=== PATIENT | female | born 1950 | race Caucasian/White ===

== ENCOUNTER 2024-07-17 23:07 | Inpatient (IN) | payer MEDICARE, BC, SELFPAY ==
[2024-07-17] VITALS (7 sets, daily range): BP systolic 91–149; BP diastolic 52–99; O2SAT 89; BMI 36.1
[2024-07-17] MEDS: ZOFRAN 4 MG IV (17:07)
[2024-07-17] MEDS: PROTONIX IV 40 MG IV (17:07)
[2024-07-17] MEDS: NSS 1000 IV (17:09)
--- NOTE | 2024-07-17 17:14 | EDRN ---
the pts p02 was 88% on RA, no c/o SOB, this RN notified Dr. Lomeli and placed the pt on 3L NC, Sp02 came up to 94%
[2024-07-17 17:17] LABS: % Basophils 0.4 % (0-2); % Immature Granulocytes 0.3 % (0-0.5); % Lymphocytes 8.8 % (20.5-51.1); % Monocytes 5.8 % (1.7-9.3); % Neutrophils 84.7 % (42.2-75.2); Absolute Lymphocytes 0.7 10^3/uL (1.2-3.4); Absolute Monocytes 0.4 10^3/uL (0.1-0.6); Absolute Neutrophils 6.5 10^3/uL (1.4-6.5); Hematocrit 41.8 % (37.0-47.0); Hemoglobin 13.9 g/dL (12.0-16.0); Mean Corp Hgb Conc. 33.3 g/dL (33.0-37.0); Mean Corpuscular Hgb 30.7 pg (27.0-31.0); Mean Corpuscular Volume 92.3 fL (81.0-99.0); Mean Platelet Volume 9.9 fL (7.4-10.4); Nucleated Red Blood Cells % 0 %; Platelet Count 196 10^3/uL (130-400); Red Blood Cell Count 4.53 10^6/uL (4.20-5.40); Red Cell Dist. Width 13.4 % (11.5-14.5); White Blood Cell Count 7.6 10^3/uL (4.8-10.8)
--- NOTE | 2024-07-17 17:24 | ED.GENMED ---
History of Present Illness
General
Chief Complaint: Abdominal Symptoms
Time Seen by Provider: 07/17/24 16:17
History of Present Illness
History of Present Illness:
73-year-old female without significant past medical history presenting to the emergency department for vomiting. Patient reports she has been vomiting throughout the night and vomited this morning, dark brown in color. She is concerned that it
could be blood. Denies any blood in her stool or any dark stool. Denies any present abdominal pain, however does note some intermittent cramping. Denies fever. Denies any history of stomach ulcer. She does intermittently take Aleve for knee
pain. Denies additional blood thinners. Denies lightheadedness, dizziness, chest pain, difficulty breathing or additional medical complaints
Phy Exam
Physical Exam
Physical Exam:
General: Well-appearing, no clinical signs of dehydration, nontoxic and in no acute distress
HEENT: protecting airway
Neck: appears supple
CV: Normal heart rate, regular rhythm, no evidence of cyanosis
Resp: No accessory muscle use, no increased work of breathing, lungs clear to auscultation bilaterally
Abd: Soft and non-distended, no tenderness to palpation
Extremities: No deformities, no swelling, no erythema
Neuro: alert, no focal neurologic deficit
: Hemoccult neg brown stool
Rectal: deferred
Psych: Normal affect
Skin: Intact
Course
Orders/Labs/Results
Orders:
Orders
07/17/24 14:47
IV Insert/Care/Rem.- Treatment PRN
07/17/24 14:48
ECG [Electrocardiogram (*1)] Urgent
Reason for Study: Abdominal Pain
EKG- Treatment ONCE
07/17/24 16:50
0.9% Sodium Chloride 1000 ml [Nss] 1,000 ml IV BOLUS
Ondansetron Injectable [Zofran] 4 mg IV NOW STA
Pantoprazole [Protonix IV] 40 mg IV NOW STA
07/17/24 17:10
Complete Blood Count/With Diff Urgent
Comprehensive Metabolic Panel Urgent
Lipase Urgent
Urinalysis Reflex To Culture Urgent
Date Specimen was Collected: 07/17/24
Time Specimen was Collected: 14:47
Urine Microscopic Reflex Cult Urgent
Urine Culture Urgent
KANDI Source: U
Specimen Description:
Date Specimen was Collected: 07/17/24
Time Specimen was Collected: 14:47
07/17/24 18:06
CR Chest - 2 Views Urgent
Comment:
Reason For Exam: sob
07/17/24 19:58
CT Pe/abd/pel W Urgent
Reason For Exam: vomiting, hypoxia
Abnormal Lab Results
07/17/24
17:10
Absolute Lymphs (auto) 0.7 L 10^3/uL
(1.2-3.4)
Neutrophils % 84.7 H %
(42.2-75.2)
Lymphocytes % 8.8 L %
(20.5-51.1)
BUN 20 H mg/dl
(7-17)
Glucose 101 H mg/dl
(70-99)
Urine Ketones 3+ A
(Negative)
Ur Occult Blood Reflex 2+ A
(Negative)
Leukocyte Esterase Rfl 3+ A
(Negative)
Urine RBC 3-6 A /HPF
(0-2)
Urine Bacteria (Reflex) Many A
(Negative)
Urine Albumin (Reflex) 2+ A
(Neg - Trace)
07/17/24 17:10
07/17/24 17:10
Vital Signs
Initial and Last Documented VS:
Initial Vital Signs
Temp Pulse Resp BP Pulse Ox
98.8 F 119 22 149/99 92
07/17/24 14:01 07/17/24 14:01 07/17/24 14:01 07/17/24 14:01 07/17/24 14:01
Last Documented Vital Signs
Temp Pulse Resp BP Pulse Ox
97.6 F 92 16 91/63 89
07/17/24 17:14 07/17/24 18:30 07/17/24 18:30 07/17/24 18:00 07/17/24 19:57
MDM/Problems Addressed
MDM/Problems Addressed:
73-year-old female presenting to the emergency department for vomiting since this morning. Vital signs are normal.
On exam patient is resting comfortably, no acute distress or discomfort. No present hemodynamic instability. Abdomen is presently soft, nontender. Ultimately suspect GERD versus gastritis. Picture of vomitus provided, dark brown in color.
Rectal exam negative for occult blood. Lower suspicion for significant GI hemorrhage. Patient could have possible peptic ulcer disease. Will check laboratory analysis including hemoglobin. Will treat with pantoprazole, Zofran, IV fluids and
reassess.
20:10 -lab work is unremarkable, normal hemoglobin. However, patient was found to be hypoxic to 88% of unclear etiology. X-ray obtained, does show opacity at the left lower lung, patient without cough or difficulty breathing. She does note that
she had COVID 3 weeks ago, so may be from prior viral infection. On ambulatory pulse ox, oxygen did drop to 89%. Heart rate went up. This reason, will obtain CT chest imaging for unclear etiology to patient's hypoxia. Given her initial vomiting
complaint, will also obtain CT abdomen
*Critical Care Note
Total Time (30-74mins, 75-104mins- exclusive of procedures): Not Applicable
ED Attending Note
-
Portions of this chart may have been created with voice recognition software.� Occasional wrong word or��sound alike� substitutions may have occurred due to the inherent limitations of voice recognition software.
Discharge Plan
Departure
Prescriptions:
No Action
dorzolamide-timolol [Cosopt] 22.3-6.8 mg/mL Drops
1 drp OPHTHALMIC (EYE) BID
Lumigan 0.01 % Drops
1 drp OPHTHALMIC (EYE) DAILY
naproxen 500 MG tablet,delayed release (DR/EC)
500 mg PO PRN PRN (Reason: pain)
Referrals:
Yenni Tee MD [Family Provider] -
Interventions
Interventions:
*Risk Screen - Suicide Last Done: 07/17/24 14:01
*General Assessment Last Done: 07/17/24 14:01
*Neglect/Abuse Screening Last Done: 07/17/24 14:01
*ED- Fall Risk Assessment Last Done: 07/17/24 17:14
*ED COVID-19 Vaccine History Last Done: 07/17/24 17:14
PA-Eygmct-[place]vdioe Assessment Last Done: 07/17/24 17:14
Discharge Date and Time
Print Language: [place]
[2024-07-17 17:31] LABS: ALT (SGPT) 22 U/L (0-35); AST (SGOT) 28 U/L (14-36); Albumin 3.6 g/dl (3.5-5.0); Alkaline Phosphatase 65 U/L (38-126); Blood Urea Nitrogen 20 mg/dl (7-17); Calcium 8.4 mg/dl (8.4-10.2); Carbon Dioxide 27 mmol/L (22-30); Chloride 105 mmol/L (98-107); Estimated Creatinine Clearance 90 ml/min; Glucose 101 mg/dl (70-99); Lipase 65 U/L (23-300); Potassium 3.6 mmol/L (3.5-5.1); Sodium 140 mmol/L (135-145); Total Bilirubin 0.6 mg/dl (0.2-1.3); Total Protein 6.5 g/dl (6.3-8.2); eGFR > 60.00
[2024-07-17 18:00] LABS: Urine Albumin 2+ (Neg - Trace); Urine Bilirubin Negative (Negative); Urine Character Slightly Cloudy (Clear); Urine Color Yellow; Urine Glucose Negative (Negative); Urine Ketone 3+ (Negative); Urine Leukocyte 3+ (Negative); Urine Nitrite Negative (Negative); Urine Occult Blood 2+ (Negative); Urine Specific Gravity 1.025 (<1.030); Urine Urobilinogen Negative (Neg - 1+)
[2024-07-17 18:20] LABS: Urine Bacteria Many (Negative); Urine Squamous Cell >30 /LPF (Few)
--- NOTE | 2024-07-17 19:59 | EDRN ---
Ambulated pt in the department, HR 110s, O2 sat 89-91% on room air, pt reports no shortness of breath or dyspnea. Dr Lomeli made aware.
--- NOTE | 2024-07-17 22:10 | HPS.HSE ---
Family Physician
-
Family Physician: Yenni Tee
Chief Complaint
-
Vomiting cola colored, hypoxia with walking
History of Present Illness
73-year-old female states she ate pizza with extra cheese and onions last night with her family at around 5 PM she then began vomiting at 8 PM every 2 hours throughout the night until 11 this morning cola colored but no specks of brown or bloody
vomit. She does report epigastric pain with vomiting She denies any black stools however has been having abdominal pain with intermittent cramping. She has been taking Aleve 440mg every other day for knee pain along with aspirin 81 mg daily. She
has never had a history of any gastric ulcer she has never had an endoscopy or colonoscopy she denies headache, fever, chills, chest pain, palpitations, cough, shortness of breath diarrhea, black stools, stomach ulcers, urinary symptoms. The
patient has past medical history of glaucoma, right knee pain, cataracts.
Medical History
Past Medical History
Past Medical History: Reports Other
Additional Past Medical History:
glaucoma
right knee pain
cataracts.
Past Surgical History: Reports Other
Additional Past Surgical History:
Retinal surgery
Cataract extraction bilateral eyes
Right thigh benign tumor removed
Bilateral hip replacement
Revision of right hip replacement
Social History
Tobacco: Non-smoker
Alcohol: None
Drug: None
Personal:
Living: With Family
Employment: Retired
Family History
Family History: Other (Father small cell lung cancer was a smoker, mother in her sleep at age 81 did not go to doctors)
Allergies / Home Medications
Allergies reflects when Allergies were last updated in [facility].
Home Medications with original date entered in [facility]
Allergy/Medication List:
Allergies
Allergy/AdvReac Type Severity Reaction Status Date / Time
No Known Allergies Allergy Verified 07/17/24 14:01
Home Medications
Aspir-81 81 mg PO DAILY 07/17/24
bimatoprost 0.01 % eye drops (Lumigan) 1 drp ophthalmic (eye) DAILY 07/17/24
dorzolamide 22.3 mg-timolol 6.8 mg/mL eye drops (Cosopt) 1 drp ophthalmic (eye) BID 07/17/24
naproxen 500 mg tablet,delayed release 500 mg PO PRN PRN pain 07/17/24
Review of Systems
-
History Source: Patient
A 12 point ROS was completed and negative except as noted: Yes
Constitutional: Denies Fever, Fatigue or Chills
EENT: Denies Sore Throat or Runny Nose
Respiratory: Denies Cough or Trouble Breathing
Cardiac: Denies Chest Pain, Diaphoresis, Palpitations or Syncope
Abdomen/GI: Reports Abdominal Pain (Midepigastric), Nausea and Vomiting (Dark cola in color); Denies Diarrhea, Constipated, Bloody Stools or Black Stools
: Denies Dysuria, Frequency, Flank Pain, Incontinence, Difficulty Voiding or Urgency
Musculoskeletal: Denies Joint Pain or Edema
Skin: Denies Itching or Rash
Neurological: Denies Dizzy or Headache
Endocrine: Reports No Symptoms
Hematologic/Lymphatic: Reports No Symptoms
Psych: Reports Calm
Physical Exam
Vital Signs
Vital Signs
Temp Pulse Resp BP Pulse Ox
97.6 F 89 21 148/69 95
07/17/24 17:14 07/17/24 21:45 07/17/24 21:45 07/17/24 21:01 07/17/24 21:45
Physical Exam
General: Comfortable and Conversant; No Pain, Fever or Chills
HEENT: NormoCephalic, Anicteric, Moist mucous membranes, PERRLA, [address] Conjunctivae and No Ptosis
Respiratory: Clear; No Wheezes, Rales or Rhonchi
Cardiac: S1/S2 and Regular Rhythm; No Murmur, Rub, Gallop or Peripheral Edema
Breast: Deferred by me
GI: Soft, Non Distended, Normal Bowel Sounds, Tender (Epigastric area) and No Hepatosplenomegaly
Genito-urinary: Deferred by me
Musculoskeletal: No Clubbing, No Cyanosis and No Edema
Skin: Warm and Dry; No Rash or Jaundice
Neuro: AO x 3, No Motor Deficits, Nonfocal/grossly intact, Cranial Nerves Intact and No Sensory Deficits; No Slurred Speech, Facial Droop, Tremors or Sedated
Psych: Calm
Laboratory Results
-
07/17/24 17:10
07/17/24 17:10
Laboratory Results
Total Bilirubin 0.6 mg/dl (0.2-1.3) 07/17/24 17:10
AST 28 U/L (14-36) 07/17/24 17:10
ALT 22 U/L (0-35) 07/17/24 17:10
Alkaline Phosphatase 65 U/L (38-126) 07/17/24 17:10
Lipase 65 U/L (23-300) 07/17/24 17:10
Impression/Plan
-
Impression/plan:
Admit to MedSurg
#Acute vomiting concern for likely gastritis versus gastric ulcer less likely GI bleed
Patient reports dark brown in color has been taking Aleve 440 mg every other day for knee pain along with aspirin 81 mg daily
Hgb stable 13.9
- N.p.o.
- IV NSS
-IV PPI
#Acute hypoxic respiratory insufficiency with possible left lower lobe pneumonia in setting of recent COVID versus rebound COVID due to Paxlovid
#Recent COVID infection 3 weeks ago treated self with Paxlovid
WBC 7.6, afebrile 97.6, HR 89, BP 140/69
88% RA, 93% 2 L nasal cannula recent COVID infection 3 weeks ago-patient treated self with Paxlovid 3 weeks ago
-Recheck COVID and influenza
-incentive spirometry
-Consult PT for walking pulse ox
CT PE study: Mild linear band of opacity in the posterior lateral left lower lobe, atelectasis versus scarring. Minor pleural-parenchymal scarring in the lingula and medial segment of the right middle lobe no evidence of pneumonia
CXR:
1. Multiple new bands of opacity in the lingula and left lower lobe. Diagnostic possibilities are (1) scarring and subsegmental atelectasis, (2) peripheral endobronchial infection, or (3) less likely pneumonia (unless there are signs/symptoms
of pulmonary infection).
2. 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
#Chronic knee pain
Hold Naprosyn 440 mg every other day and aspirin 81 mg daily
#Class II obesity�BMI 36
Affects all aspects of care
Weight loss recommended
DVT prophylaxis
SCDs
Full code
--- NOTE | 2024-07-17 22:14 | W.PN.UPDATE ---
Update Note
Progress Note Update
Patient seen in conjunction with JAMIL. I agree with the findings and physical. I concur with the assessment and plan listed otherwise.
Is a 73-year-old with past medical history of no known significant medical problems who presents to the emergency department with nausea vomiting and was found to be hypoxic in the emergency department.
Patient started having vomiting earlier this morning that she reported that was dark in color. She is on aspirin daily for prophylaxis. She also takes naproxen for knee pain. She had a large piece of meal with lots of cheese yesterday. She
started having some abdominal discomfort. Then this morning started vomiting and nausea. In the emergency department she denied any significant pain. Vomiting has subsided. Workup in the emergency department was negative in terms of the
abdominal symptoms. She had a CT of the abdomen pelvis which did not reveal any acute intra-abdominal process.
While in the ED patient was found to be hypoxic with ambulation. A chest x-ray was performed which showed some scarring/atelectasis of the lingula and the left lower lobe. Possible endobronchial infection was suspected. She had a CT PE study
which confirmed the likely scarring and did not confirm any pneumonia. There was no pulmonary embolism on the CT scan.
Diagnosis COVID-19 3 weeks ago. She did complete a course of Paxlovid. She says she checked that send recently that she tested negative for COVID.
Vital signs were otherwise stable with a blood pressure of 140/70 pulse of 89 and she was satting 95% at rest on room air.
CBC unremarkable bilaterally BUN/creatinine were all normal. UA was equivocal with likely contamination given large amount of squamous cells. She also has no urinary symptoms.
Assessment and plan
1. Nausea vomiting -negative CT scan, well-appearing, no evidence of biliary disease.
- Possible viral gastritis, well-appearing and in no acute distress will monitor for now with symptomatic treatments
- Gentle hydration
- ppi daily
- prn zofran
- holding aspirin/nsaids (used for knee pain)
- monitor cbc, hemoccult stool
2. Hypoxia -no history of asthma or COPD or interstitial lung disease. No definitive pulmonary emboli on CT PE, some artifact present. No CHF on x-ray or CT scan. There is atelectasis/scarring of the lingular lobe noted on CT. no acute
respiratory symptoms. Possibly obesity hypoventilation, restrictive lung disease versus rebound COVID.
- Incentive spirometry,
- Viral panel
- d-dimer
- abg in am, if gradient consider V/Q scan
- If all negative, assess for home O2
- Can follow-up with outpatient pulmonary for pfts and further eval
3. Adrenal nodule - '8 mm left adrenal nodule. Mild left adrenal soft tissue stranding. This could suggest mild adrenal congestion, which may precede adrenal hemorrhage. Consider follow-up in one week.'
DVT prophylaxis -SCDs
CODE STATUS -full code
[2024-07-18] VITALS: BP 137/49
[2024-07-18 01:00] VITALS: BP 141/61
[2024-07-18 01:20] LABS: COVID-19 Antigen Negative (Negative)
[2024-07-18 02:00] VITALS: BP 137/63; BMI 38.5
--- NOTE | 2024-07-18 02:30 | PTCARENOTE ---
New admit to [facility] from ER via stretcher and able to walk to room bed with steady gait, independent with her personal single point cane. Pt. in NAD, even and unlabored breathing on 2L NC, VSS, offers no complaints at this time. Pt. oriented to room
and unit policies, side rails in place, bed locked and in lowest position, call light within reach, and plan of care discussed during assessment.
[2024-07-18] MEDS: NSS 1000 IV (02:52)
[2024-07-18 05:48] LABS: B.E. -0.2 mmol/L; HCO3 24.8 mmol/L (21-28); O2 Saturation % 94.8 % (94-98); PCO2 41 mmHg (32-35); PO2 64 mmHg (83-108); pH 7.39 (7.35-7.45)
[2024-07-18 07:12] VITALS: BP 122/55
[2024-07-18 09:07] LABS: D-Dimer 1.15 ug/mlFEU (0.00-0.50)
[2024-07-18 09:10] LABS: % Basophils 0.3 % (0-2); % Eosinophils 0.6 % (0-6); % Immature Granulocytes 0.5 % (0-0.5); % Lymphocytes 16.5 % (20.5-51.1); % Neutrophils 73.1 % (42.2-75.2); Absolute Monocytes 0.6 10^3/uL (0.1-0.6); Absolute Neutrophils 4.6 10^3/uL (1.4-6.5); Hemoglobin 12.7 g/dL (12.0-16.0); Mean Corp Hgb Conc. 33.4 g/dL (33.0-37.0); Mean Corpuscular Hgb 30.7 pg (27.0-31.0); Mean Corpuscular Volume 91.8 fL (81.0-99.0); Nucleated Red Blood Cells % 0 %; Red Blood Cell Count 4.14 10^6/uL (4.20-5.40); Red Cell Dist. Width 13.6 % (11.5-14.5); White Blood Cell Count 6.2 10^3/uL (4.8-10.8)
[2024-07-18] MEDS: NSS (PRESERVATIVE FREE) 10 ML IV (09:16)
[2024-07-18] MEDS: PROTONIX IV 40 MG IV (09:16)
[2024-07-18 09:33] LABS: ALT (SGPT) 22 U/L (0-35); AST (SGOT) 33 U/L (14-36); Albumin 3.1 g/dl (3.5-5.0); Alkaline Phosphatase 54 U/L (38-126); Blood Urea Nitrogen 13 mg/dl (7-17); Calcium 7.9 mg/dl (8.4-10.2); Carbon Dioxide 26 mmol/L (22-30); Chloride 108 mmol/L (98-107); Estimated Creatinine Clearance 109 ml/min; Glucose 93 mg/dl (70-99); Potassium 3.6 mmol/L (3.5-5.1); Sodium 140 mmol/L (135-145); Total Bilirubin 0.4 mg/dl (0.2-1.3); Total Protein 5.6 g/dl (6.3-8.2); eGFR > 60.00
[2024-07-18 11:45] LABS: Platelet Count 152 10^3/uL (130-400)
--- NOTE | 2024-07-18 13:31 | CM ---
Addendum entered by Brenda Galloway RN 07/18/24 14:45:
CM reviewed medical records. Patient is medically ready for discharge.
PLAN: Home no needs.
Original Note:
CM reviewed medical records. CM met with patient in room. Patient lives independently with . Patient does not have a history of VN< SNF. Patient does rely on a cane for ambulation.
Patient expressing frustration regarding not being seen yet today and wants to sign out AMA. CM updated bedside RN and hospitalist.
PLAN: Home no needs.
--- NOTE | 2024-07-18 14:24 | W.DS.TRANS ---
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
-
Discharge Instructions:
Discharge Diagnosis/Procedures Acute gastroenteritis, food poisoning possible.
Transient hypoxemia likely secondary to
atelectasis
Left adrenal nodule/incidentaloma
Diet Regular
Others Tests CT abdomen and pelvis to follow up with left
adrenal nodule
Instructions:
Stand-Alone Forms:
Changes to Home Medications: No
Discharge Medications:
DC Medications w/original date entered in [employer]
Aspir-81 81 mg PO DAILY 07/17/24
bimatoprost 0.01 % eye drops (Lumigan) 1 drp ophthalmic (eye) DAILY Eye Condition 07/17/24
dorzolamide 22.3 mg-timolol 6.8 mg/mL eye drops (Cosopt) 1 drp ophthalmic (eye) BID Eye Condition 07/17/24
naproxen 500 mg tablet,delayed release 500 mg PO PRN PRN pain 07/17/24
hjohogry-hurf-matu 8 mg-folic 400 mcg-K 50 mcg-lutein 300 mcg tablet (Centrum Silver Women) 1 tab PO DAILY Supplement 07/18/24
Home Medication Changes
Pending Results: No
[2024-07-18 14:58] VITALS: BP 134/63
== END 2024-07-18 15:30 | disposition home or self-care (01) | DRG 391 ==
LOC: 2 SOUTH 23:07
PROVIDERS: Clinical Nurse Specialist Family Health; Student in an Organized Health Care Education/Training Program; ADMITTING PHYSICIAN Internal Medicine; ATTENDING PHYSICIAN Internal Medicine; EMERGENCY PHYSICIAN Student in an Organized Health Care Education/Training Program; FAMILY PHYSICIAN Family Medicine
DX: K29.70 Gastritis, unspecified, without bleeding (principal); J18.9 Pneumonia, unspecified organism; J98.11 Atelectasis; E87.29 Other acidosis; R09.02 Hypoxemia; E27.8 Other specified disorders of adrenal gland; Z79.82 Long term (current) use of aspirin
CPT/HCPCS: 36600; 71046; 71275; 74177; 80053; 81003; 81015; 82805; 83690; 85025; 85379; 87086; 87502; 87811; 96361; 96374; 96375; 99285; Q9967

== ENCOUNTER → 2024-09-09 16:23 | Outpatient (REF) | payer MEDICARE, BC, SELFPAY | LOC: RAD 16:23 | PROVIDERS: ATTENDING PHYSICIAN Nurse Practitioner Family; FAMILY PHYSICIAN Family Medicine | DX: E27.9 Disorder of adrenal gland, unspecified (principal) | CPT/HCPCS: 74170; Q9967 ==